=== PATIENT | female | born 1980 | race Caucasian/White ===

== ENCOUNTER 2017-07-01 06:08 | Day surgery (SDC) | payer SELFPAY ==
[2017-06-17 13:25] VITALS: BMI 23.3
[2017-07-01] MEDS ORDERED: ceFAZolin SODIUM 1 GM VIAL ONE (07:21)
[2017-07-01] MEDS ORDERED: LIDOCAINE 1%/EPI 1:100000 (20 ML MULTI DOSE VIAL) ONE ×2 (07:22→07:30)
[2017-07-01] MEDS ORDERED: GENTAMICIN SO4 80 MG/2 ML VIAL ONE (07:22)
[2017-07-01] MEDS ORDERED: BUPIVACAINE HCL/PF 2.5 MG/ML - 30 ML VIAL IJ ONE ×2 (07:22→07:30)
[2017-07-01] MEDS ORDERED: TRIAMCINOLONE ACET 40MG/1ML VIAL ONE (07:45)
[2017-07-01] MEDS ORDERED: MIDAZOLAM HCL 2 MG/2 ML SINGLE DOSE VIAL ONE (08:10)
[2017-07-01] MEDS ORDERED: PROPOFOL 20 ML ONE ×2 (08:17)
[2017-07-01] MEDS ORDERED: LIDOCAINE HCL 2% 100 MG/5 ML DISP.SYRIN ONE (08:21)
[2017-07-01] MEDS ORDERED: CLINDAMYCIN PHOSPHATE 600 MG/4 ML VIAL ONE (08:36)
[2017-07-01] MEDS ORDERED: DEXAMETHASONE SOD PHOSPHATE 4 MG/1 ML VIAL ONE (08:36)
[2017-07-01] MEDS ORDERED: ONDANSETRON 4 MG/2 ML VIAL ONE (08:36)
[2017-07-01] MEDS ORDERED: LIDOCAINE 1%/EPI 1:100000 (50 ML MULTI DOSE VIAL) INF ONE (08:39)
[2017-07-01] MEDS ORDERED: SODIUM CHLORIDE 0.9% P/F 10 ML VIAL IJ ONE (08:42)
[2017-07-01] MEDS ORDERED: DESFLURANE GAS 240 ML BOTTLE IH ONE (09:05)
[2017-07-01] MEDS ORDERED: BUPIVACAINE HCL/PF 0.25% (2.5MG/ML) 10 ML VIAL IJ ONE (09:22)
[2017-07-01] MEDS ORDERED: TRIAMCINOLONE ACET 40MG/1ML VIAL IM ONE (09:31)
[2017-07-01] MEDS ORDERED: oxyCODONE HCL 5 MG TABLET PO PRN (10:13)
[2017-07-01] MEDS ORDERED: ONDANSETRON 4 MG/2 ML VIAL IVPUSH PRN (10:13)
[2017-07-01] MEDS ORDERED: LACTATED RINGERS SOLUTION 1,000 ML IV SCH (10:15)
[2017-07-01 11:19] VITALS: TEMP 98.4
[2017-07-01] MEDS ORDERED: ACETAMINOPHEN 500 MG TABLET (FP) ONE (11:26)
[2017-07-01] MEDS ORDERED: ACETAMINOPHEN 500 MG TABLET (FP) PO ONE (11:46)
[2017-07-01 12:19] VITALS: PULSE 76
[2017-07-01 12:21] VITALS: BP 107/65
== END 2017-07-01 12:15 | disposition home or self-care (01) ==
LOC: FASU 06:08
PROVIDERS: ATTEND Surgery
PROC: 0HRU07Z Replacement of Left Breast with Autologous Tissue Substitute, Open Approach (ICD-10-PCS; principal; 2017-07-01 08:41)
DX: Z41.1 Encounter for cosmetic surgery (principal)
CPT/HCPCS: 84703; 94760